=== PATIENT | female | born 1960 | race Caucasian/White ===

== ENCOUNTER 2016-09-03 13:31 | Emergency (ER) | payer OTHER ==
[~2016-09-03] VITALS: Ht 144.8 cm; Wt 66.3 kg
[~2016-09-03 13:31] MED LIST: CALC1TAB15 PO; LOSA25TA21 PO; OMEP40CA12 PO; SIMV20TA6 PO
[2016-09-03] MEDS ORDERED: ALEN35TA32 PO (13:39)
[2016-09-03] MEDS ORDERED: ASPI81 PO (13:39)
[2016-09-03] MEDS ORDERED: IBUP-1547 PO (13:39)
[2016-09-03] MEDS ORDERED: ACYCLOVIR 200 MG CAPSULE PO ONE (15:15)
[2016-09-03] MEDS ORDERED: OxyCODONE HCL/ACETAMINOPHEN 5-325 MG TABLET PO ONE (15:15)
[2016-09-03 15:24] VITALS: BP 121/89
== END 2016-09-03 15:26 | disposition home or self-care (01) ==
LOC: EMS 13:33
DX: B02.9 Zoster without complications (principal); K21.9 Gastro-esophageal reflux disease without esophagitis; E78.00 Pure hypercholesterolemia, unspecified; I10 Essential (primary) hypertension; Z79.82 Long term (current) use of aspirin; Z88.5 Allergy status to narcotic agent
CPT/HCPCS: 99283

== ENCOUNTER 2017-03-24 19:49 | Emergency (ER) | payer OTHER ==
[~2017-03-24] VITALS: Ht 162.6 cm; Wt 65.9 kg
[~2017-03-24 19:49] MED LIST changes: +ALEN35TA32 PO; +ASPI81 PO; +IBUP-2071 PO
[2017-03-24] MEDS ORDERED: DICL25 PO (19:56)
[2017-03-24] MEDS ORDERED: HYDROCODONE/ACETAMINOPHEN 5-325 MG TABLET PO ONE (21:00)
[2017-03-24 22:55] VITALS: BP 110/72
== END 2017-03-24 23:09 | disposition home or self-care (01) ==
LOC: EMS 19:51
DX: S13.4XXA Sprain of ligaments of cervical spine, initial encounter (principal); I10 Essential (primary) hypertension; E78.00 Pure hypercholesterolemia, unspecified; K21.9 Gastro-esophageal reflux disease without esophagitis; Z88.5 Allergy status to narcotic agent; V43.52XA Car driver injured in collision with other type car in traffic accident, initial encounter; Y93.89 Activity, other specified; Y92.89 Other specified places as the place of occurrence of the external cause; Y99.8 Other external cause status
CPT/HCPCS: 72040; 99284

== ENCOUNTER 2018-02-20 16:48 | Emergency (ER) | payer OTHER ==
[~2018-02-20] VITALS: Ht 152.4 cm; Wt 66.8 kg
[~2018-02-20 16:48] MED LIST changes: +DICL25 PO
[2018-02-20 18:13] LABS: BASOPHILS % (AUTO) 0.2 % (0.0-2.0); EOSINOPHILS % (AUTO) 0.1 % (1.0-6.0); HEMATOCRIT 35.7 % (36-46); HEMOGLOBIN 12.3 g/dL (12.0-16.0); LYMPHOCYTES % (AUTO) 13.2 % (22.0-44.0); MEAN CORPUSCULAR HEMOGLOBIN 30.7 pg (26.0-34.0); MEAN CORPUSCULAR HGB CONC 34.4 G/dL (31.0-37.0); MEAN CORPUSCULAR VOLUME 89 fL (80-100); MONOCYTES # (AUTO) 0.3 K/uL (0.1-1.0); MONOCYTES % (AUTO) 3.7 % (2.0-9.0); NEUTROPHILS # (AUTO) 6.1 K/uL (1.8-7.7); NEUTROPHILS % (AUTO) 82.8 % (40.0-70.0); PLATELET COUNT (AUTO) 234 K/uL (150-450); RED CELL DISTRIBUTION WIDTH 13.9 % (11.5-14.5)
[2018-02-20 18:23] LABS: ANION GAP 9 mmol/L (8-16); CALCIUM, TOTAL 8.9 mg/dL (8.8-10.5); CARBON DIOXIDE 25 mmol/L (22-29); CHLORIDE 102 mmol/L (98-107); CREATININE 0.59 mg/dL (0.60-1.30); GLOMERULAR FILTR. RATE CALC > 60 mL/min (>60); GLUCOSE,RANDOM 128 mg/dL (70-110); POTASSIUM 3.5 mmol/L (3.5-5.1); SODIUM SERUM 136 mmol/L (136-145); UREA NITROGEN, BLOOD 9 mg/dL (7-18)
[2018-02-20 18:29] LABS: ALANINE AMINOTRANSFERASE 45 U/L (12-78); ALBUMIN 3.6 g/dL (3.4-5.0); ALKALINE PHOSPHATASE 153 U/L (46-116); ASPARTATE AMINOTRANSFERASE 34 U/L (15-37); BILIRUBIN,TOTAL 0.3 mg/dL (0.1-1.0); LIPASE 142 U/L (73-393); TOTAL PROTEIN, SERUM 7.4 g/dL (6.4-8.2)
[2018-02-20 18:31] LABS: LACTIC ACID 1.8 mmol/L (0.4-2.0)
[2018-02-20] MEDS ORDERED: ACETAMINOPHEN 500 MG TABLET PO ONE (18:45)
[2018-02-20] MEDS ORDERED: DIPHENOXYLATE/ATROP 2.5-0.025 MG TABLET PO ONE (18:45)
[2018-02-20] MEDS ORDERED: ONDANSETRON HCL 4 MG/2 ML VIAL IVP ONE (18:45)
[2018-02-20] MEDS ORDERED: IBUPROFEN 600 MG TABLET PO ONE (18:45)
[2018-02-20] MEDS ORDERED: SODIUM CHLORIDE 0.9% 1,000 ML IV ONE (18:45)
[2018-02-20 18:52] LABS: APPEARANCE,URINE CLEAR (CLEAR); BILIRUBIN,URINE NEGATIVE (NEGATIVE); GLUCOSE, URINE (UA) NEGATIVE (NEGATIVE); KETONES,URINE NEGATIVE (NEGATIVE); LEUKOCYTE ESTERASE ,URINE NEGATIVE (NEGATIVE); NITRATE,URINE NEGATIVE (NEGATIVE); OCCULT BLOOD,URINE LARGE (NEGATIVE); PH,URINE 5.5 (5.0-8.0); PROTEIN,URINE NEGATIVE (NEGATIVE); UROBILINOGEN,URINE 0.2 mg/dL (<=1.0)
[2018-02-20 19:36] LABS: BACTERIA,URINE Few /HPF (None Seen); SQUAMOUS EPITHELIAL CELL,UR Few /LPF (None Seen); WBC,URINE 0-2 /HPF (0-5)
[2018-02-20 19:58] VITALS: BP 126/71
== END 2018-02-20 20:00 | disposition home or self-care (01) ==
LOC: EMS 16:49
DX: K52.9 Noninfective gastroenteritis and colitis, unspecified (principal); R07.89 Other chest pain; R51 Headache; R42 Dizziness and giddiness; M19.90 Unspecified osteoarthritis, unspecified site; K21.9 Gastro-esophageal reflux disease without esophagitis; E78.00 Pure hypercholesterolemia, unspecified; I10 Essential (primary) hypertension; Z88.5 Allergy status to narcotic agent; Z79.82 Long term (current) use of aspirin
CPT/HCPCS: 36415; 71045; 80053; 81001; 83605; 83690; 84484; 85025; 87040; 93005; 96361; 96374; 99285; J2405; J7030